=== PATIENT | female | born 1950 | race Caucasian/White ===

== ENCOUNTER → 2020-01-07 | Day surgery (SDC) | payer MEDICARE, BC ==
[2020-01-05 12:05] LABS: BASOPHILS % 0.4 % (0.0-1.0); EOSINOPHILS # (AUTO) 0.1 (0.0-0.4); HEMATOCRIT 43.5 % (34.2-44.1); HEMOGLOBIN 14.5 g/dL (12.0-16.0); LYMPHOCYTES # (AUTO) 2.5 (1.0-3.2); LYMPHOCYTES % 30.7 % (18.0-39.1); MEAN CORPUSCULAR HEMOGLOBIN 29.9 pg (28-32); MEAN CORPUSCULAR HGB CONC 33.3 g/dL (31-35); MEAN CORPUSCULAR VOLUME 89.7 fL (81-99); MONOCYTES # (AUTO) 0.6 (0.2-0.8); MONOCYTES % 7.3 % (4.4-11.3); NEUTROPHILS # (AUTO) 4.9 (2.1-6.9); NEUTROPHILS % 60.4 % (38.7-80.0); PLATELET COUNT 273 x10e3/uL (140-360); RED BLOOD COUNT 4.85 x10e6/uL (3.6-5.1); RED CELL DISTRIBUTION WIDTH 12.4 % (11.7-14.4)
[~2020-01-07] MED LIST: CALCIUM 500+D1 EACH PO; CEPHALEXIN500 MG PO; FENTANYL CITRATE/PF 100MCG/2 ML INJ ONE; GLUCAGON FOR INJ 1 MG VIAL ONE; HYOSCYAMINE 0.125 MG TAB ONE; MIDAZOLAM HCL 2 MG/2 ML VIAL ONE; PROPOFOL IV EMULSION 10 MG/ML 50 ML VIAL ONE
--- OUTSIDE RECORDS SUMMARY | 2020-01-07 06:59 | XMS REPORT ---
Author Author [facility] Address Unknown Phone Unavailable Care Team Providers Care Gold Nib Grinder Name Role Phone Unavailable Unavailable Problems This patient has no known problems. Allergies, Adverse Reactions, Alerts This patient has no known allergies or adverse reactions. Medications This patient has no known medications. Results Test Description Test Time Test Comments Text Results Atomic Results Result Comments SCR MAMM BILATERAL EHSAN CAD DIGITAL 2019-11-09 13:58:37 - SCR MAMM BILATERAL EHSAN CAD DIGITALBILATERAL DIGITAL SCREENING MAMMOGRAM 3D/2D WITH CAD: 11/08/2019CLINICAL: Asymptomatic. Digital breast tomosynthesis was performed in addition to routine CC and MLO views. Current mammographic images were evaluated by either a [employer] M-Vu or a [employer] ImageChecker CAD (computer aided detection system). Comparison is made to exam dated 12/24/2017 mammogram - [facility]. There are scattered fibroglandular tissues in both breasts. There is a benign calcification in the right breast. There also are benign calcifications in the left breast. No suspicious mass, architectural distortion, malignant type calcification, or lymph node abnormality detected. Breast architecture is stable compared to prior exams.IMPRESSION: BENIGNThere is no mammographic evidence of malignancy. Resume annual screening mammography in one year. Stephan stanley/billie:11/09/2019 13:58:37 Supervisor Rose Grading: Adwoa June FW, [facility]: BIRADS 1-2 Normal Mammogram BI-RADS: 2 Benign
[2020-01-07 11:05] VITALS: BP 107/65
--- NOTE | 2020-01-07 18:44 | Operative Report ---
DATE OF PROCEDURE: 01/07/2020 SURGEON: Kofi Alfred MD PROCEDURES: Colonoscopy with polypectomy. INDICATIONS FOR COLONOSCOPY: Surveillance colonoscopy, personal history of colon polyps. MEDICATIONS: The patient was done under MAC, please see anesthesiologist's note. PROCEDURE IN DETAIL: With the patient in left lateral decubitus position, flexible fiberoptic Olympus colonoscope was inserted into the rectum with ease and advanced all the way to the cecum. It was then withdrawn slowly. Mucosa overlying the cecum, ascending colon, and transverse colon appeared to be within normal limits. One polyp was hot biopsied from the descending colon. Minimal diverticulosis was noted in the sigmoid colon. One polyp was snared, three polyps were hot biopsied from the sigmoid, and the three polyps were hot biopsied from the rectum. The scope was then retroflexed into the distal rectum and small internal hemorrhoids were noted, none of which was actively bleeding. The scope was then straightened out, it was subsequently withdrawn. The patient tolerated the procedure well. IMPRESSION: 1. Descending colon polyp, hot biopsied. 2. Diverticulosis, minimal. 3. Sigmoid colon polyps x4, one snared and three hot biopsied. 4. Rectal polyps x3, hot biopsied. 5. Internal hemorrhoids, none actively bleeding. PLAN: Follow up histology. Initiate high-fiber, low-fat diet. Initiate high-fiber supplement. The patient might benefit from a followup colonoscopy in 3 years. Kofi Alfred MD [facility]/MATILDE /[id number] cc: Chapincito Joiner MD
== END | disposition home or self-care (01) ==
LOC: OR 06:09
PROVIDERS: ATTEND Internal Medicine Gastroenterology
DX: Z09 Encounter for follow-up examination after completed treatment for conditions other than malignant neoplasm (principal); D12.4 Benign neoplasm of descending colon; K62.1 Rectal polyp; K57.30 Diverticulosis of large intestine without perforation or abscess without bleeding; K64.8 Other hemorrhoids; R13.19 Other dysphagia; E03.9 Hypothyroidism, unspecified; R73.03 Prediabetes; N39.0 Urinary tract infection, site not specified; Z88.6 Allergy status to analgesic agent; R03.0 Elevated blood-pressure reading, without diagnosis of hypertension; Z01.810 Encounter for preprocedural cardiovascular examination; Z01.812 Encounter for preprocedural laboratory examination; Z68.29 Body mass index [BMI] 29.0-29.9, adult; Z86.19 Personal history of other infectious and parasitic diseases; Z87.891 Personal history of nicotine dependence; Z80.0 Family history of malignant neoplasm of digestive organs
CPT/HCPCS: 36415; 45384; 45385; 85025; 88305; 93005; J1610; J2250; J2704; J3010; 45378

== ENCOUNTER → 2020-03-03 | Outpatient (CLI) | payer MEDICARE, BC ==
[~2020-03-03] MED LIST changes: -FENTANYL CITRATE/PF 100MCG/2 ML INJ ONE; -GLUCAGON FOR INJ 1 MG VIAL ONE; -HYOSCYAMINE 0.125 MG TAB ONE; -MIDAZOLAM HCL 2 MG/2 ML VIAL ONE; -PROPOFOL IV EMULSION 10 MG/ML 50 ML VIAL ONE
--- NOTE | 2020-03-06 10:49 | Diagnostic Imaging Report ---
Thyroid ultrasound History: Hyperthyroidism Comparison: None Findings: The thyroid echotexture is heterogeneous on the right. Vascularity is normal. The right lobe measures 6.9 x 2.8 x 4.8 cm. The left lobe measures 3.2 x 1.3 x 1.4 cm. The isthmus measures 0.3 cm. Nodules (measurements are AP, transverse, craniocaudal): Right Lobe: Goiter no discrete mass or nodule. Left Lobe: 1.4 x 1.0 x 1.2 cm solid, isoechoic, wider than tall, smooth nodule without associated calcifications. Isthmus: No cystic mass or discrete solid nodule identified. Lymph Nodes: No cervical lymph nodes are identified. Parathyroids: Not visualized. IMPRESSION: Right thyroid goiter. Left thyroid 1.4 x 1.0 x 1.2 cm isoechoic nodule (TR-3). ACR glossary of thyroid rads TI-RADS 1: No focal lesion. TI-RADS 2: Not suspicious. TI-RADS 3: Mildly suspicious (recommend FNA is greater than or equal to 2.5 cm; follow-up at 1, 3, and 5 years if greater than or equal to 1.5 cm) TI-RADS 4: Moderately Suspicious (recommend FNA is greater than or equal to 1.5 cm; follow-up at 1, 2, 3, and 5 years) TI-RADS 5: Highly suspicious (recommend FNA is greater than or equal to 10 mm) TI-RADS 6: Biopsy-proven malignancy Signed by: Jw Esteves MD on 03/06/2020 10:46 AM
== END ==
LOC: US 09:47
PROVIDERS: ATTEND Internal Medicine Endocrinology, Diabetes & Metabolism
DX: E05.90 Thyrotoxicosis, unspecified without thyrotoxic crisis or storm (principal); G47.00 Insomnia, unspecified
CPT/HCPCS: 76536

== ENCOUNTER → 2020-05-24 | Outpatient (CLI) | payer MEDICARE, BC ==
--- NOTE | 2020-05-25 21:57 | Diagnostic Imaging Report ---
Thyroid Scan with Multiple Uptakes Reason for exam: 69 F with low but not suppressed TSH and normal FT4 and FT3. TSI and anti-Tg antibody are negative. Anti-TPO antibody is positive. Patient is not on any thyroid or anti-thyroid medication. She has a history of left hemithyroidectomy in 1998. Radiopharmaceutical: I-123 Abdoul 0.28 mCi Report: After oral administration of I-123 Abdoul, the 6-hour thyroid uptake of iodine is 12% (normal 4-14%) and the 24-hour uptake is 25% (normal 10-35%). Images of the thyroid was obtained in the anterior and anterior oblique projections. The left thyroid lobe is absent. The right thyroid lobe has an enlarged and slightly distorted shape with heterogeneous distribution of tracer activity throughout the thyroid lobe. There are no discrete focal areas of increased or decreased tracer activity. The thyroid is in a normal anatomic location. A pyramidal lobe is not seen. There is no aberrant functioning thyroid tissue seen in the area scanned. Impression: 1. Normal thyroid uptake of iodine. 2. Scan evidence of slightly hypertrophied right thyroid lobe without discrete nodules. 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 Signed by: Dr. Fina Soares M.D. on 05/25/2020 9:54 PM
== END ==
LOC: NM 08:52
PROVIDERS: ATTEND Internal Medicine Endocrinology, Diabetes & Metabolism
DX: E05.90 Thyrotoxicosis, unspecified without thyrotoxic crisis or storm (principal)
CPT/HCPCS: 78014; A9516